=== PATIENT | male | born 1980 | race Caucasian/White ===

== ENCOUNTER 2020-04-01 10:12 | Emergency (ER) | payer OTHER ==
[~2020-04-01] VITALS: Ht 182.9 cm; Wt 106.1 kg
[2020-04-01 10:12] VITALS: BP 121/75
[2020-04-01] MEDS ORDERED: TETRACAINE 0.5% OPHTH SOLUTION 4ML BOTTLE. ONE (10:24)
[2020-04-01] MEDS ORDERED: FLUORESCEIN 1MG EYE STRIP. ONE (10:24)
[2020-04-01] MEDS ORDERED: FLUORESCEIN 1MG EYE STRIP. OD ONE (10:45)
[2020-04-01] MEDS ORDERED: TETRACAINE 0.5% OPHTH SOLUTION 4ML BOTTLE. OD ONE (10:45)
[2020-04-01] MEDS ORDERED: ERYTHROMYCIN EYE OIN OD (10:47)
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
== END 2020-04-01 10:52 | disposition home or self-care (01) ==
LOC: ER 10:12
DX: T15.11XA Foreign body in conjunctival sac, right eye, initial encounter (principal); Z88.8 Allergy status to other drugs, medicaments and biological substances; X58.XXXA Exposure to other specified factors, initial encounter; Y93.89 Activity, other specified; Y92.89 Other specified places as the place of occurrence of the external cause; Y99.8 Other external cause status
CPT/HCPCS: 65205; 99284

== ENCOUNTER → 2020-04-16 | Outpatient (CLI) | payer OTHER ==
[2020-04-01 10:12] VITALS: BP 121/75
[~2020-04-16] MED LIST: ERYTHROMYCIN EYE OIN OD
== END | disposition home or self-care (01) ==
LOC: LAB 14:18
PROVIDERS: ATTEND Internal Medicine Cardiovascular Disease
DX: U07.1 COVID-19 (principal)
CPT/HCPCS: 36415; U0003